=== PATIENT | male | born 1985 | race Caucasian/White ===

== ENCOUNTER 2018-08-11 12:38 | Emergency (ER) | payer OTHER ==
[2018-08-11 13:35] LABS: Urine Blood NEGATIVE (NEG); Urine Glucose TRACE (NEG); Urine Protein NEGATIVE (NEG); Urine Specific Gravity 1.015 (1.005-1.030); Urine pH 5.5 (5.0-7.0)
--- NOTE | 2018-08-11 13:42 | RAD REPORT ---
EXAM DESCRIPTION: Brandon Single View08/11/2018 1:36 pm CLINICAL HISTORY: Chest pain COMPARISON: none FINDINGS: The patient is in a poor degree of inspiration. The lungs appear clear of acute infiltrate. The heart is normal size
[2018-08-11 14:03] LABS: Barbiturates NEGATIVE (NEGATIVE); Benzodiazepines NEGATIVE (NEGATIVE); Cocaine NEGATIVE (NEGATIVE); METHAMPHETAM NEGATIVE (NEGATIVE); Methadone NEGATIVE (NEGATIVE); Opiates NEGATIVE (NEGATIVE); Phencyclidine NEGATIVE (NEGATIVE); THC Cannibis NEGATIVE (NEGATIVE)
[2018-08-11 14:04] LABS: Absolute Lymphocytes (CBC) 3.1 K/uL (0.7-4.9); Absolute Monocytes 0.4 K/uL (0.1-1.3); Absolute Neutrophil 5.2 K/uL (1.8-8.0); Basophils % 0.7 % (0-1.3); Eosinophils % 2.1 % (0-4.4); Lymphocytes % 34.2 % (15.3-44.8); MPV 10.5 fL (7.6-11.3); Monocytes % 4.7 % (3.3-12.3); RBC Red Blood Cell Count 5.27 M/uL (4.33-5.43)
[2018-08-11 14:07] LABS: Protime INR 1.04
[2018-08-11 14:25] LABS: ALT/SGPT 71 U/L (12-78); AST/SGOT 48 U/L (15-37); Albumin 3.8 g/dL (3.4-5.0); Alkaline Phosphatase 73 U/L (45-117); BUN Blood Urea Nitrogen 9 mg/dL (7-18); Bicarbonate 25 mmol/L (21-32); Bilirubin Direct 0.2 mg/dL (0-0.2); Bilirubin Total 0.5 mg/dL (0.2-1.0); Glucose Level 150 mg/dL (74-106); NT PRO-BNP 8 pg/mL (<125); Potassium 3.8 mmol/L (3.5-5.1); Protein, Total 7.7 g/dL (6.4-8.2); Sodium Level 138 mmol/L (136-145); Troponin (Emerg Dept Use Only) < 0.02 ng/mL (0.0-0.045)
--- NOTE | 2018-08-11 15:56 | EKG ---
Test Date: 2018-08-11 Test Time: 12:57:51 Pediatric Neurologist: DEIDRE MEASUREMENT RESULTS: Intervals: Rate: 108 PA: 172 QRSD: 96 QT: 340 QTc: 455 [place]: P: 39 PA: 172 QRS: 3 T: 26 INTERPRETIVE STATEMENTS: Sinus tachycardia Otherwise normal ECG No previous ECG available for comparison Electronically Signed On 08-11-18 15:55:01 CDT by Osman Huerta
--- NOTE | 2018-08-11 16:51 | EDPHYS ---
Physician Documentation [facility] Name: Issac Sheets Age: 33 yrs Sex: Male : 1985 Arrival Date: 08/11/2018 Time: 12:40 Bed 23 Private MD: ED Physician Dar Rosa HPI: 08/12 07:12 This 33 yrs old Male presents to ER via Ambulatory with complaints of Chest kdr Tightness, Elevated Pulse. 07:12 The patient or guardian reports chest pain that is located primarily in the substernal kdr area. The pain does not radiate. Associated signs and symptoms: Pertinent positives: nausea, shortness of breath. The chest pain is described as aching, burning, dull, a pressure. Duration: The patient or guardian reports a single episode, that is now resolved. Modifying factors: The symptoms are alleviated by nothing. the symptoms are aggravated by nothing. Severity of pain: At its worst the pain was moderate in the emergency department the pain has resolved. The patient has not experienced similar symptoms in the past. The patient has not recently seen a physician. The patient went to see the school nurse who noted that he had a HR of 146 by finger pulse-ox. HE was then sent to the ED and in route, he his s/s resolved.. Historical: - Allergies: 08/11 12:48 No Known Allergies; ph - Home Meds: 12:48 Ranitidine Oral [Active]; ph - PMHx: 12:48 GERD; ph - PSHx: 12:48 None; ph - Immunization history:: Adult Immunizations unknown. - Social history:: Smoking status: Patient uses tobacco products, smokes one-half pack cigarettes per day. - Ebola Screening: : No symptoms or risks identified at this time. ROS: 08/12 07:12 Constitutional: Negative for fever, chills, and weight loss, Eyes: Negative for injury, kdr pain, redness, and discharge, ENT: Negative for injury, pain, and discharge, Neck: Negative for injury, pain, and swelling, Respiratory: Negative for shortness of breath, cough, wheezing, and pleuritic chest pain, Abdomen/GI: Negative for abdominal pain, nausea, vomiting, diarrhea, and constipation, Back: Negative for injury and pain, : Negative for injury, bleeding, discharge, and swelling, MS/Extremity: Negative for injury and deformity, Skin: Negative for injury, rash, and discoloration, Neuro: Negative for headache, weakness, numbness, tingling, and seizure activity. Psych: Negative for depression, anxiety, suicide ideation, homicidal ideation, and hallucinations, Allergy/Immunology: Negative for hives, rash, and allergies, Endocrine: Negative for neck swelling, polydipsia, polyuria, polyphagia, and marked weight changes, Hematologic/Lymphatic: Negative for swollen nodes, abnormal bleeding, and unusual bruising. Cardiovascular: Positive for chest pain, palpitations, Negative for edema, orthopnea, paroxysmal nocturnal dyspnea. Exam: 07:12 Constitutional: This is a well developed, well nourished patient who is awake, alert, kdr and in no acute distress. Head/Face: Normocephalic, atraumatic. Eyes: Pupils equal round and reactive to light, extra-ocular motions intact. Lids and lashes normal. Conjunctiva and sclera are non-icteric and not injected. Cornea within normal limits. Periorbital areas with no swelling, redness, or edema. Neck: Trachea midline, no thyromegaly or masses palpated, and no cervical lymphadenopathy. Supple, full range of motion without nuchal rigidity, or vertebral point tenderness. No Meningismus. Chest/axilla: Normal chest wall appearance and motion. Nontender with no deformity. No lesions are appreciated. Cardiovascular: Regular rate and rhythm with a normal S1 and S2. No gallops, murmurs, or rubs. Normal PMI, no JVD. No pulse deficits. Respiratory: Lungs have equal breath sounds bilaterally, clear to auscultation and percussion. No rales, rhonchi or wheezes noted. No increased work of breathing, no retractions or nasal flaring. Abdomen/GI: Soft, non-tender, with normal bowel sounds. No distension or tympany. No guarding or rebound. No evidence of tenderness throughout. Back: No spinal tenderness. No costovertebral tenderness. Full range of motion. Skin: Warm, dry with normal turgor. Normal color with no rashes, no lesions, and no evidence of cellulitis. MS/ Extremity: Pulses equal, no cyanosis. Neurovascular intact. Full, normal range of motion. Neuro: Awake and alert, GCS 15, oriented to person, place, time, and situation. Cranial nerves II-XII grossly intact. Motor strength 5/5 in all extremities. Sensory grossly intact. Cerebellar exam normal. Normal gait. Psych: Awake, alert, with orientation to person, place and time. Behavior, mood, and affect are within normal limits. Vital Signs: 08/11 12:46 BP 136 / 78; Pulse 119; Resp 20; Temp 98.0; Pulse Ox 97% on R/A; Weight 131.54 kg; ph Height 5 ft. 10 in. (177.80 cm); Pain 1/; 13:50 BP 122 / 71; Pulse 88; Resp 19; Temp 98.2(O); Pulse Ox 98% on R/A; ca1 14:42 BP 118 / 81; Pulse 77; Resp 17 S; Temp 98.2(O); Pulse Ox 95% on R/A; ca1 15:31 BP 133 / 81; Pulse 80; Resp 17 S; Temp 98.1(O); Pulse Ox 97% on R/A; ca1 16:01 BP 124 / 68; Pulse 88; Resp 17 S; Temp 98(O); Pulse Ox 97% on R/A; ca1 16:45 BP 141 / 84; Pulse 89; Resp 17 S; Temp 98.2(O); Pulse Ox 98% on R/A; ca1 12:46 Body Mass Index 41.61 (131.54 kg, 177.80 cm) ph MDM: 16:50 Patient medically screened. kdr 08/12 07:12 Data reviewed: vital signs, nurses notes, lab test result(s), radiologic studies. kdr 08/11 13:03 Order name: Urine Dipstick--Ancillary (enter results); Complete Time: 15:23 bd 08/11 13:09 Order name: Basic Metabolic Panel; Complete Time: 15:23 kdr 08/11 13:09 Order name: CBC with Diff; Complete Time: 15:23 kdr 08/11 13:09 Order name: LFT's; Complete Time: 15:23 kdr 08/11 13:09 Order name: Magnesium; Complete Time: 15:23 kdr 08/11 13:09 Order name: NT PRO-BNP; Complete Time: 15:23 kdr 08/11 13:09 Order name: PT-INR; Complete Time: 15:23 kdr 08/11 13:09 Order name: Troponin (emerg Dept Use Only); Complete Time: 15:23 [facility] 08/11 13:09 Order name: XRAY Chest (1 view); Complete Time: 15:23 [facility] 08/11 13:09 Order name: EKG; Complete Time: 13:10 [facility] 08/11 13:09 Order name: Cardiac monitoring; Complete Time: 13:11 [facility] 08/11 13:09 Order name: EKG - Nurse/Tech; Complete Time: 13:11 [facility] 08/11 13:09 Order name: Urine Drug Screen; Complete Time: 15:23 [facility] 08/11 15:24 Order name: Troponin (emerg Dept Use Only): Draw 3 hours from initial presentation for kdr chest pain; Complete Time: 16:48 08/11 13:09 Order name: IV Saline Lock; Complete Time: 13:11 [facility] 08/11 13:09 Order name: Labs collected and sent; Complete Time: 13:11 [facility] 08/11 13:09 Order name: O2 Per Protocol; Complete Time: 13:11 [facility] 08/11 13:09 Order name: O2 Sat Monitoring; Complete Time: 13:11 [facility] Administered Medications: No medications were administered Disposition: 08/11/18 16:50 Discharged to Home. Impression: Palpitations, Gastro-esophageal reflux disease with esophagitis. - Condition is Stable. - Discharge Instructions: Indigestion, Nonspecific Chest Pain, [id number], Gastroesophageal Reflux Disease, Adult, [id number], Palpitations, [id number]. - Prescriptions for Protonix 40 mg Oral Tablet - take 1 tablet by ORAL route once daily; 30 tablet. - Medication Reconciliation Form, Thank You Letter form. - Follow up: Private Physician; When: 1 - 2 days; Reason: If symptoms return, Further diagnostic work-up, Recheck today's complaints, Continuance of care, Re-evaluation by your physician. - Problem is new. - Symptoms are resolved. Signatures: Dispatcher [employer] EDDar Clifford MD MD kdr Vane Mei RN RN ph AcobMinnie RN RN ca1 Corrections: (The following items were deleted from the chart) 08/11 17:07 16:50 08/11/2018 16:50 Discharged to Home. Impression: Palpitations; Gastro-esophageal ca1 reflux disease with esophagitis. Condition is Stable. Forms are Medication Reconciliation Form, Thank You Letter, Antibiotic Education, Prescription Opioid Use. Follow up: Private Physician; When: 1 - 2 days; Reason: If symptoms return, Further diagnostic work-up, Recheck today's complaints, Continuance of care, Re-evaluation by your physician. Problem is new. Symptoms are resolved. kdr
--- NOTE | 2018-08-11 16:51 | ER ---
Nurse's Notes [facility] Name: Issac Sheets Age: 33 yrs Sex: Male : 1985 Arrival Date: 08/11/2018 Time: 12:40 Bed 23 Private MD: Diagnosis: Palpitations;Gastro-esophageal reflux disease with esophagitis Presentation: 08/11 12:44 Presenting complaint: Patient states: Sudden onset of chest pressure while eating ph lunch, also reports SOB, nausea and palpitations, went to nurse at work who reports that HR was in 140s, pt reports that SOB and nausea has improved but continues to report chest pressure 1/10, down from 4/10. Transition of care: patient was not received from another setting of care. Onset of symptoms was August 11, 2018. Risk Assessment: Do you want to hurt yourself or someone else? Patient reports no desire to harm self or others. Initial Sepsis Screen: Does the patient meet any 2 criteria? No. Patient's initial sepsis screen is negative. Does the patient have a suspected source of infection? No. Patient's initial sepsis screen is negative. Care prior to arrival: None. 12:44 Method Of Arrival: Ambulatory ph 12:44 Acuity: SREE 2 ph Historical: - Allergies: 12:48 No Known Allergies; ph - Home Meds: 12:48 Ranitidine Oral [Active]; ph - PMHx: 12:48 GERD; ph - PSHx: 12:48 None; ph - Immunization history:: Adult Immunizations unknown. - Social history:: Smoking status: Patient uses tobacco products, smokes one-half pack cigarettes per day. - Ebola Screening: : No symptoms or risks identified at this time. Screenin:55 Abuse screen: Denies threats or abuse. Denies injuries from another. Nutritional ca1 screening: No deficits noted. Tuberculosis screening: No symptoms or risk factors identified. Fall Risk None identified. Assessment: 12:55 General: Appears in no apparent distress. comfortable, Behavior is calm, cooperative, ca1 appropriate for age. Pain: Denies pain. Complains of pain in mid-sternal area Pain does not radiate. Pain currently is 0 out of 10 on a pain scale. at worst was 4 out of 10 on a pain scale. Quality of pain is described as pressure, Pain began 2 hours ago. Is continuous. Neuro: Level of Consciousness is awake, alert, obeys commands, Oriented to person, place, time, situation. Cardiovascular: Heart tones S1 S2 present Capillary refill < 3 seconds Patient's skin is warm and dry. Rhythm is sinus tachycardia. Respiratory: Airway is patent Respiratory effort is even, unlabored, Respiratory pattern is regular, symmetrical, Breath sounds are clear bilaterally. GI: Abdomen is round non-distended, Bowel sounds present X 4 quads. Abd is soft and non tender X 4 quads. Reports nausea, since during chest pain but not now. : No deficits noted. No signs and/or symptoms were reported regarding the genitourinary system. EENT: No deficits noted. No signs and/or symptoms were reported regarding the EENT system. Derm: Skin is intact, is healthy with good turgor, Skin is pink, warm \T\ dry. Musculoskeletal: Circulation, motion, and sensation intact. Capillary refill < 3 seconds. 13:50 Reassessment: Patient appears in no apparent distress at this time. Patient and/or ca1 family updated on plan of care and expected duration. Pain level reassessed. Patient is alert, oriented x 3, equal unlabored respirations, skin warm/dry/pink. 14:43 Reassessment: Patient appears in no apparent distress at this time. Eyes closed. Equal ca1 and unlabored breathing. Skin pink, warm and dry. 15:31 Reassessment: Patient appears in no apparent distress at this time. Patient and/or ca1 family updated on plan of care and expected duration. Pain level reassessed. Patient is alert, oriented x 3, equal unlabored respirations, skin warm/dry/pink. 16:01 Reassessment: Repeat Trop drawn and sent to lab. Awaiting result for pt disposition. ca1 16:45 Reassessment: Patient appears in no apparent distress at this time. Patient is alert, ca1 oriented x 3, equal unlabored respirations, skin warm/dry/pink. Vital Signs: 12:46 BP 136 / 78; Pulse 119; Resp 20; Temp 98.0; Pulse Ox 97% on R/A; Weight 131.54 kg; ph Height 5 ft. 10 in. (177.80 cm); Pain 04/15; 13:50 BP 122 / 71; Pulse 88; Resp 19; Temp 98.2(O); Pulse Ox 98% on R/A; ca1 14:42 BP 118 / 81; Pulse 77; Resp 17 S; Temp 98.2(O); Pulse Ox 95% on R/A; ca1 15:31 BP 133 / 81; Pulse 80; Resp 17 S; Temp 98.1(O); Pulse Ox 97% on R/A; ca1 16:01 BP 124 / 68; Pulse 88; Resp 17 S; Temp 98(O); Pulse Ox 97% on R/A; ca1 16:45 BP 141 / 84; Pulse 89; Resp 17 S; Temp 98.2(O); Pulse Ox 98% on R/A; ca1 12:46 Body Mass Index 41.61 (131.54 kg, 177.80 cm) ph ED Course: 12:40 Patient arrived in ED. as 12:46 Triage completed. ph 12:48 Arm band placed on Patient placed in an exam room, on a stretcher, on youth nutritional monitor, ph on pulse oximetry. 12:49 Minnie Rogers, NANI is Primary Nurse. ca1 12:55 Patient has correct armband on for positive identification. Placed in gown. Bed in low ca1 position. Call light in reach. security monitor on. Pulse ox on. NIBP on. Warm blanket given. 12:57 EKG done, by sterile technician. reviewed by Dar Rosa MD. at1 13:07 Dar Rosa MD is Attending Physician. kdr 13:30 No provider procedures requiring assistance completed. Inserted saline lock: 20 gauge ca1 in right antecubital area, using aseptic technique. Blood collected. Patient maintains SpO2 saturation greater than 95% on room air. 13:34 X-ray completed. Portable x-ray completed in exam room. Patient tolerated procedure sw well. 13:36 XRAY Chest (1 view) In Process Unspecified. EDMS 15:51 Repeat lab(s) drawn. by me, sent to lab. ca1 17:06 IV discontinued, intact, bleeding controlled, No redness/swelling at site. Pressure ca1 dressing applied. Administered Medications: No medications were administered Outcome: 16:50 Discharge ordered by . kdr 17:06 Discharged to home ambulatory, with significant other. ca1 17:06 Condition: stable 17:06 Discharge instructions given to patient, Instructed on discharge instructions, follow up and referral plans. medication usage, Demonstrated understanding of instructions, follow-up care, medications, Prescriptions given X 1. 17:07 Patient left the ED. ca1 Signatures: Dispatcher [employer] EDMS Dar Rosa MD MD kdr Martinez, Amelia as Gonzales, Amanda, fashion director party [employer] sales EKG Tat1 Vane Mei, RN RN Jane Buenrostro Cheryl, RN RN ca1
== END 2018-08-11 17:07 | disposition home or self-care (01) ==
LOC: ER 12:38
DX: K21.0 Gastro-esophageal reflux disease with esophagitis (principal); R07.9 Chest pain, unspecified; F17.210 Nicotine dependence, cigarettes, uncomplicated
CPT/HCPCS: 36415; 71045; 80048; 80076; 80307; 81003; 83735; 83880; 84484; 85025; 85610; 93005; 99285